=== PATIENT | female | born 1970 | race Caucasian/White ===

== ENCOUNTER → 2017-03-19 | Outpatient (CLI) | payer BC ==
--- NOTE | 2017-03-21 08:07 | MM ---
Reason for exam: screening (asymptomatic). Last mammogram was performed 2 years and 2 months ago. History: Taking hormonal contraceptives for 13 years 9 months beginning at age 21. Physical Findings: A clinical breast exam by your physician is recommended on an annual basis and results should be correlated with mammographic findings. MG Screening Mammo w CAD Bilateral CC and MLO view(s) were taken. Prior study comparison: January 15, 2015, bilateral MG screening mammo w CAD. The breast tissue is heterogeneously dense. This may lower the sensitivity of mammography. No significant changes when compared with prior studies. ASSESSMENT: Negative, BI-RAD 1 RECOMMENDATION: Routine screening mammogram of both breasts in 1 year.
== END | disposition home or self-care (01) ==
LOC: RADMAMWWP 17:00
PROVIDERS: ATTEND Obstetrics & Gynecology
DX: Z12.31 Encounter for screening mammogram for malignant neoplasm of breast (principal)

== ENCOUNTER → 2022-02-08 | Outpatient (CLI) | payer BC ==
--- NOTE | 2022-02-09 09:12 | MM ---
Reason for exam: clinical finding. Last mammogram was performed 4 years and 11 months ago. History: Took hormonal contraceptives for 13 years 9 months beginning at age 21. Indicated problem(s): palpable abnormality in the left breast. Physical Findings: A clinical breast exam by your physician is recommended on an annual basis and results should be correlated with mammographic findings. MG Diagnostic Mammo w CAD NESS Bilateral CC and MLO view(s) were taken. ML view(s) were taken of the right breast. Prior study comparison: March 19, 2017, bilateral MG screening mammo w CAD. January 15, 2015, bilateral MG screening mammo w CAD. The breast tissue is heterogeneously dense. This may lower the sensitivity of mammography. Finding: There is a 8 mm equal density (isodense), circumscribed oval mass located 10 cm from the nipple in the outer quadrant, posterior position of the right breast on MLO. There is no discrete abnormality including area of concern: left bruised area. New finding since January 15, 2015 and March 19, 2017. ASSESSMENT: Incomplete: need additional imaging evaluation, BI-RAD 0 RECOMMENDATION: Ultrasound of both breasts.
--- NOTE | 2022-02-09 09:25 | USB ---
Reason for exam: additional evaluation requested from abnormal screening. History: Took hormonal contraceptives for 13 years 9 months beginning at age 21. Physical Findings: A clinical breast exam by your physician is recommended on an annual basis and results should be correlated with mammographic findings. US Breast Limited BILAT Right limited breast ultrasound including focal area of concern, retroareolar and axilla demonstrates a 13 x 7 x 12mm oval, cystic lesion at 10 o'clock and a 11 x 7 x 10mm oval, mixed lesion at 10 o'clock, cyst aspiration recommended. Left limited breast ultrasound including focal area of concern, retroareolar and axilla demonstrates asymmetric tissue at 12 o'clock palpable, possible contusion, follow up in 2-3 months. ASSESSMENT: Suspicious, BI-RAD 4 RECOMMENDATION: Aspiration of the right breast. Ultrasound of the left breast in 3 months. (10 o'clock right breast complex cyst) Manage on a clinical basis with regard to left breast. Called Dr. Thomas's office with mammographic findings and has scheduled an appointment for the patient for 04/06/22 at 8:[address] Figueredo. Aspiration scheduled for 02/15/22 at 12:00. PRELIMINARY REPORT CALLED AND FAXED TO DR. FIGUEREDO ON 02/09/22.
== END | disposition home or self-care (01) ==
LOC: RADMAMWWP 08:24
PROVIDERS: ATTEND Obstetrics & Gynecology
DX: N63.0 Unspecified lump in unspecified breast (principal)
CPT/HCPCS: 77066

== ENCOUNTER → 2022-02-15 | Day surgery (SDC) | payer BC ==
[2022-02-15 12:21] VITALS: RESP 12
[2022-02-15 13:33] VITALS: BP 138/92; PULSE 80; TEMP 98.6
--- NOTE | 2022-02-15 14:51 | USB ---
EXAMINATION TYPE: US biopsy breast VAD RT, MG diagnostic mammo RT wo CAD DATE OF EXAM: 02/15/2022 CLINICAL HISTORY: R92.8 abnormal mammogram. Abnormal ultrasound. TECHNIQUE: Ultrasound guided fine-needle aspiration and/or core biopsy of right breast with clip placement and follow-up two-view mammogram. COMPARISON: Prior mammogram and ultrasound February 08, 2022 FINDINGS: The procedure of ultrasound guided fine-needle aspiration and/or core biopsy was explained to the patient. Benefits, alternatives, and risks were discussed. An informed consent was then obtained. The patient was placed in supine positioning for imaging and for the procedure. Preprocedure ultrasound redemonstrates 9 mm hypoechoic oval lesion with internal echoes and slight increased through transmission without vascularity at 10 and 11:00 position zone C. The overlying skin was prepped and draped in usual sterile fashion. Lidocaine is used as anesthetic into the skin and subcutaneous tissue up to area of concern in the right breast. Under ultrasound guidance, 18-gauge needle was inserted into the lesion but there is minimal aspiration of bloody material. At this point biopsy is chosen to further evaluate. A vacuum Assisted biopsy gun device was used to obtain 3 core samples under ultrasound guidance. Following this, a biopsy clip was left in lesion. Lesion appears slightly smaller and more irregular after sampling. The patient tolerated the procedure well without any immediate complication. The patient was kept in the radiology department for short stay after the procedure and then discharged home in stable condition. Postprocedure mammogram confirmed successful deployment of biopsy clip in the posterior depth upper outer aspect. IMPRESSION: Successful, uncomplicated ultrasound guided core biopsy of area of concern in the right breast, full pathology results to follow. Low index of suspicion noted at time of procedure. Pathology Results: Benign RIGHT BREAST, 10:00, ULTRASOUND GUIDED CORE BIOPSY: Fibroadenoma and background fibrocystic changes. Recommendation Follow up mammogram of the right breast in 6 months. SHAWNA
== END ==
LOC: RADUSWWP 11:53
PROVIDERS: ATTEND Surgery
DX: D24.1 Benign neoplasm of right breast (principal)
CPT/HCPCS: 88305; 77065; 19083; A4648; J2001

== ENCOUNTER → 2022-05-19 | Outpatient (CLI) | payer BC ==
--- NOTE | 2022-05-19 08:59 | USB ---
Patient History: Menarche at age 14. First Full-Term at age 31. Late child-bearing (after 31). Hormonal Contraceptives, starting at age 21 for 13 years, 9 months. 02/15/2022, Benign Core Biopsy on the right side. Risk Values: Le 5 year model risk: 1.6%. NCI Lifetime model risk: 14.0%. Prior Study Comparison: 03/19/2017 Bilateral Screening Mammogram, [facility]. 02/08/2022 Bilateral Diagnostic Mammogram, [facility]. 02/15/2022 Right Diagnostic Mammogram, [facility]. Findings: This exam is compared to the ultrasound of 02/08/2022. Over the interval there has been a change in the area of reported trauma left breast 12:00 zone A position. This area now appears suspicious with posterior shadowing and irregular borders. Biopsy is recommended. Overall Assessment: Suspicious, BI-RAD 4 Management: Ultrasound Core Biopsy of the left breast. A clinical breast exam by your physician is recommended on an annual basis and results should be correlated with mammographic findings. Electronically signed and approved by: Rocky Low D.O. Radiologis
== END | disposition home or self-care (01) ==
LOC: RADUSWWP 07:31
PROVIDERS: ATTEND Surgery
DX: R92.8 Other abnormal and inconclusive findings on diagnostic imaging of breast (principal)

== ENCOUNTER → 2022-05-29 | Day surgery (SDC) | payer BC ==
--- NOTE | 2022-06-02 14:02 | USB ---
Reason for Exam: Post Procedure Mammogram. Last screening mammogram was performed 4 month(s) ago. Patient History: Menarche at age 14. First Full-Term at age 31. Late child-bearing (after 31). Hormonal Contraceptives, starting at age 21 for 13 years, 9 months. 02/15/2022, Benign Core Biopsy on the right side. Last menstrual period: 05/28/2022 Risk Values: Le 5 year model risk: 1.6%. NCI Lifetime model risk: 14.0%. Prior Study Comparison: 03/19/2017 Bilateral Screening Mammogram, [facility]. 02/08/2022 Bilateral Diagnostic Mammogram, [facility]. 02/15/2022 Right Diagnostic Mammogram, [facility]. Tissue Density: Left: The breast tissue is heterogeneously dense. This may lower the sensitivity of mammography. Pathology Description: Location: 12 o'clock. Marker Left Behind. Needle Type: Mammotome Cores: 4 Skin Nicks: 1 The procedure of ultrasound guided core biopsy was explained to the patient. Benefits, alternatives, and risks were discussed. An informed consent was then obtained. The patient was placed in supine positioning for imaging and for the procedure. Preprocedure ultrasound redemonstrates vague irregular hypoechoic mass at 12:00 position with shadowing without significant vascularity difficult to accurately measure in size. The overlying skin was prepped and draped in usual sterile fashion. Lidocaine with epinephrine was used as anesthetic into the skin and subcutaneous tissue up to area of concern in the left breast. Under ultrasound guidance, a 12-gauge vacuum assisted biopsy gun device was used to obtain 4 core samples. Following this, a biopsy clip was left in lesion. The patient tolerated the procedure well without any immediate complication. The patient was kept in the radiology department for short stay after the procedure and then discharged home in stable condition. Post procedure mammogram shows successful deployment of clip corresponding to area of distortion and palpable abnormality on most recent mammogram Impression: Successful, uncomplicated ultrasound guided core biopsy of area of concern in the left breast, full pathology results to follow. Intermediate to high index of suspicion noted at time of procedure. Pathology Results: Result: Malignant, Invasive lobular carcinoma. LEFT BREAST, 12:00, ULTRASOUND GUIDED CORE BIOPSY: Invasive lobular carcinoma. See Surgical Pathology Cancer Case Summary and Comment. Overall Assessment: Malignant Assessment: MG diagnostic mammo LT wo CAD. - Left: Known biopsy proven malignancy, BI-RAD 6. Management: Surgical Consultation of the left breast. Electronically signed and approved by: Ronald Tamayo M.D.
== END ==
LOC: RADUSWWP 12:38
PROVIDERS: ATTEND Surgery
DX: C50.912 Malignant neoplasm of unspecified site of left female breast (principal); Z17.0 Estrogen receptor positive status [ER+]
CPT/HCPCS: 88305; 88342; 88341; 77065; 19083; A4648

== ENCOUNTER → 2022-06-13 | Outpatient (CLI) | payer BC ==
--- NOTE | 2022-06-23 06:31 | BMR ---
EXAMINATION TYPE: MR breast BILAT wo/w con DATE OF EXAM: 06/13/2022 COMPARISON: 3-D bilateral breast mammogram February 08, 2022 BI-RADS 0. Limited bilateral breast ultraso und February 08, 2022 BI-RADS 4. Complete left breast ultrasound May 19, 2022 BI-RADS 4. HISTORY: Mass 2 o'clock left breast, biopsy done. Invasive lobular carcinoma. Benign right breast bio psy February 15, 2022 fibroadenoma. TECHNIQUE: A series of fat and water weighted images in the long and short axis views of both breasts are obtained in conjunction with dynamic contrast MRI with subtraction technique. The patient was i njected with 7 mL intravenous Gadavist gadolinium contrast. Three-dimensional and additional postpr ocessing imaging is created on independent workstation and reviewed during official interpretation of this study. FINDINGS: Heterogeneously dense fibroglandular tissue is redemonstrated bilaterally. The T2 and STIR weighted images show multiple cysts of varying size and shape scattered throughout bilateral breasts, for reference is roughly 1.1 cm benign-appearing thin-walled cyst near 12:00 position right breast a xial image 40. No concerning focal fluid collections. No suspicious axillary adenopathy is identified bilaterally. Dynamic postcontrast imaging shows severe background enhancement including areas of tin y nodular enhancement bilaterally which is noted to lower MRI sensitivity. Delayed dynamic imaging sh ows no suspicious internal mammary adenopathy. Regarding the right breast: At the 9 o'clock position, 8.7 cm from the nipple, there is an oval mass with circumscribed margins measuring 1.2 x 1.0 x 1.3 cm. The mass contains susceptibility artifact centrally. Internal enhancement is heterogeneous. Kinetic assessment demonstrates fast initial enhancement followed by washout in the delayed portions of the curve. This is felt to correspond to the level of the biopsy proven fibroadenoma February 15, 2022. No other definitive suspicious masses or suspicious areas of enhancement are identified. Evaluation is limited by marked background parenchymal enhancement. Regarding the left breast: At the 12 o'clock position, 3.6 cm from the nipple, there is regional non mass enhancement measuring 5.4 x 2.6 x 3.7 cm. Internal enhancement is heterogeneous. Kinetic asses sment demonstrates some areas of fast initial enhancement followed by washout in the delayed portions of the curve. The non mass enhancement extends from the upper outer quadrant into the medial aspect of the left breast. There is associated architectural distortion appreciated best on mammogram. This corresponds to site of recent biopsy-proven neoplasm. In the inferior breast, no other masses or suspicious areas of enhancement are identified. Marked background parenchymal enhancement limits evaluation. IMPRESSION: Known malignancy identified at the 12 o'clock position of the left breast as described in detail in t he body of the report, maximum extent of 5.4 cm. No evidence of malignancy in the right breast, biopsy proven benign mass at the 9 o'clock position co rresponds to MRI abnormality. No lymphadenopathy. Innumerable bilateral scattered simple cysts, benign. Recommendations: Appropriate action be taken of the known left breast malignancy. BI-RADS category 2, benign right breast. BI-RADS category 6, known biopsy proven malignancy left breast. Case reviewed in consultation with [facility] radiology.
== END | disposition home or self-care (01) ==
LOC: RADMRIMAIN 12:21
PROVIDERS: ATTEND Surgery
DX: C50.912 Malignant neoplasm of unspecified site of left female breast (principal)
CPT/HCPCS: 77049; A9585

== ENCOUNTER → 2022-09-26 | Outpatient (CLI) | payer BC ==
--- NOTE | 2022-09-26 19:15 | CT ---
EXAMINATION TYPE: CT abdomen pelvis w con CT DLP: 999 mGycm, Automated exposure control for dose reduction was used. DATE OF EXAM: 09/26/2022 4:37 PM COMPARISON: none CLINICAL INDICATION:Female, 52 years old with history of C50.812 malignant neoplasm left breast; gene tic testing. hx of breast cancer TECHNIQUE: Axial CT of the abdomen and pelvis. Sagittal and coronal reformats were created on a [employer] workstation. Contrast used:100ml mL of Isovue 300 with IV Contrast, Oral contrast used: with Oral Contrast FINDINGS: LOWER CHEST: Unremarkable ABDOMEN LIVER: Unremarkable GALLBLADDER AND BILE DUCTS: The gallbladder is surgically absent. PANCREAS: Unremarkable. SPLEEN: Unremarkable. ADRENAL GLANDS: Unremarkable. KIDNEYS AND URETERS: No evidence of hydronephrosis or renal calculus. The ureters are unremarkable. PELVIS BLADDER: Unremarkable REPRODUCTIVE: Multiple hypoechoic attenuating lesions are seen throughout the lower uterus favored to represent nabothian cysts. ABDOMEN & PELVIS STOMACH AND BOWEL: No evidence of bowel obstruction. PERITONEUM: No evidence of pneumoperitoneum or free fluid. VASCULATURE: No evidence of aortic aneurysm. MUSCULOSKELETAL: No acute osseous abnormalities, no suspicious osseous lesions. LYMPH NODES: No gross evidence for lymphadenopathy. SOFT TISSUE/ABDOMINAL WALL: Fat-containing umbilical hernia. IMPRESSION: No evidence for metastatic disease within the abdomen or pelvis.
== END | disposition home or self-care (01) ==
LOC: RADCTMAIN 13:06
PROVIDERS: ATTEND Internal Medicine Hematology & Oncology
DX: C50.812 Malignant neoplasm of overlapping sites of left female breast (principal)
CPT/HCPCS: 74177; Q9967

== ENCOUNTER → 2022-10-17 | Outpatient (CLI) | payer BC ==
[2022-10-17 18:36] LABS: Basophils # (A) 0.06 X 10*3/uL (0.00-0.10); Basophils % (A) 0.8 %; Eosinophils # (A) 0.16 X 10*3/uL (0.04-0.35); Eosinophils % (A) 2.1 %; HCT 42.1 % (37.2-46.3); HGB 13.2 g/dL (12.0-15.0); Immature Grans, Automated 0.3 %; Lymphocytes # (A) 2.05 X 10*3/uL (0.90-5.00); Lymphocytes % (A) 27.3 %; MCH 28.3 pg (27.0-32.0); MCHC 31.4 g/dL (32.0-37.0); MCV 90.1 fL (80.0-97.0); Mean Platelet Volume 9.9 fL (9.5-12.2); Monocytes # (A) 0.57 X 10*3/uL (0.20-1.00); Monocytes % (A) 7.6 %; NRBC Per 100 WBC 0 /100 WBCS (0.0-0.0); Neutrophils # (A) 4.66 X 10*3/uL (1.80-7.70); Neutrophils % (A) 61.9 %; Platelet Count 532 X 10*3/uL (140-440); RBC 4.67 X 10*6/uL (4.10-5.20); RDW 12.8 % (11.5-14.5); WBC 7.52 X 10*3/uL (4.50-10.00)
== END | disposition home or self-care (01) ==
LOC: LABPAT 11:52
PROVIDERS: ATTEND Obstetrics & Gynecology
DX: Z01.812 Encounter for preprocedural laboratory examination (principal)
CPT/HCPCS: 36415; 85025

== ENCOUNTER → 2022-10-17 | Outpatient (CLI) | payer BC ==
--- NOTE | 2022-10-17 18:16 | BD ---
EXAMINATION TYPE: Axial Bone Density DATE OF EXAM: 10/17/2022 COMPARISON: BASELINE CLINICAL HISTORY: 52 years old Female. ICD-10 CODE: Z79.890 POST MENOPAUSAL SYMPTOMS Height: 63.5 Weight: 146 FRAX RISK QUESTIONS: Family History (Parent hip fracture): NO History of Fracture in Adulthood: NO Secondary Osteoporosis: NO RISK FACTORS HISTORY OF: Family History of Osteoporosis: NO Active: YES Diet low in dairy products/other sources of calcium: NO Postmenopausal woman: NO If Premenopausal, do you have irregular periods: NO Lost more than 2 inches in height since high school: NO MEDICATIONS: Additional Medications: NO Additional History: YES INVASIVE LOBULAR CA BREAST 06/09 EXAM MEASUREMENTS: Bone mineral densitometry was performed using the [employer] System. Bone mineral density as measured about the Lumbar spine is: ----- L1-L4(G/cm2): 1.123 T Score Values are as follows: ----- L1: 0.4 ----- L2: -0.7 ----- L3: -0.8 ----- L4: -0.8 ----- L1-L4: -0.5 Bone mineral density BASELINE Bone mineral density about the R hip (g/cm2): 0.810 Bone mineral density about the L hip (g/cm2): 0.792 T Score values are as follows: -----R Neck: -2.7 -----L Neck: -2.7 -----R Total: -1.6 -----L Total: -1.7 Bone mineral density BASELINE FRAX%s: The graph provided illustrates a 5.9% chance for a major osteoporotic fx and a 2.4% chance fo r the hips probability for fx in 10 years time. IMPRESSION: Osteoporosis (T Score less than -2.5). There is increased fracture risk and therapy is usually indicated based on age. Re-Screen 1-2 years. NOTE: T-SCORE=SD OF THE YOUNG ADULT MEAN.
== END | disposition home or self-care (01) ==
LOC: RADBDWWP 11:19
PROVIDERS: ATTEND Internal Medicine Hematology & Oncology
DX: M81.0 Age-related osteoporosis without current pathological fracture (principal); Z79.890 Hormone replacement therapy
CPT/HCPCS: 77080

== ENCOUNTER → 2022-10-20 | Outpatient (CLI) | payer BC | END | disposition home or self-care (01) | LOC: LABPAT 13:23 | PROVIDERS: ATTEND Obstetrics & Gynecology | DX: Z01.812 Encounter for preprocedural laboratory examination (principal) | CPT/HCPCS: 93005 ==

== ENCOUNTER 2022-10-26 07:31 | Day surgery (SDC) | payer BC ==
--- NOTE | 2022-10-25 18:07 | P.HPOB ---
History of Present Illness H&P Date: 10/25/22 Chief Complaint: Breast cancer 52-year-old presents for laparoscopic bilateral salpingo-oophorectomy using da Jose Luis. She has ER positive OH positive carcinoma of breast. Her oncologist has sent me correspond with the requests bilateral ovary removal. Review of Systems All systems: negative Constitutional: Denies chills, Denies fever Eyes: denies blurred vision, denies pain Ears, nose, mouth and throat: Denies headache, Denies sore throat Cardiovascular: Denies chest pain, Denies shortness of breath Respiratory: Denies cough Gastrointestinal: Denies abdominal pain, Denies diarrhea, Denies nausea, Denies vomiting Genitourinary: Denies dysuria, Denies hematuria Musculoskeletal: Denies myalgias Integumentary: Denies pruritus, Denies rash Neurological: Denies numbness, Denies weakness Psychiatric: Denies anxiety, Denies depression Endocrine: Denies fatigue, Denies weight change Past Medical History Past Medical History: Asthma, Cancer Additional Past Medical History / Comment(s): ASTHMA A CHILD, migraines, left breast cancer, has "white coat syndrome", [facility] to [facility] mastectomy for post-op staph infection, had EKG in there [facility], showed tachycardia- they felt was due to her anxiety History of Any Multi-Drug Resistant Organisms: None Reported Past Surgical History: Breast Surgery, Section, Cholecystectomy Additional Past Surgical History / Comment(s): X 2, left breast biopsy, modesto mastectomy w/reconstruction in June Past Anesthesia/Blood Transfusion Reactions: Postoperative Nausea & Vomiting (PONV) Smoking Status: Never smoker - Past Family History Mother Family Medical History: No Reported History Father Family Medical History: Hyperlipidemia, Hypertension Additional Family Medical History / Comment(s): HEART PROBLEMS Medications and Allergies Home Medications Medication Instructions Recorded Confirmed Type No Known Home Medications 10/24/22 10/24/22 History Allergies Allergy/AdvReac Type Severity Reaction Status Date / Time No Known Allergies Allergy Verified 10/24/22 10:12 Exam Osteopathic Statement: *. No significant issues noted on an osteopathic structural exam other than those noted in the History and Physical/Consult. Heart: Regular rate and rhythm Lungs: Clear to auscultation bilaterally Abdomen: Soft, nontender Extremities: Negative Homans sign Assessment and Plan (1) Carcinoma of breast, estrogen and progesterone receptor positive Status: Acute Code(s): C50.919 - MALIGNANT NEOPLASM OF UNSP SITE OF UNSPECIFIED FEMALE BREAST; Z17.0 - ESTROGEN RECEPTOR POSITIVE STATUS [ER+] SNOMED Code(s): 361827336 Plan: 1. Laparoscopic bilateral salpingo-oophorectomy using da Jose Luis
[~2022-10-26 07:31] MED LIST: Pre Op ABX Message 1 EACH MISC MISCELLANE ONE
[2022-10-26] MEDS ORDERED: DEXAMETHASONE SOD PHOSPHATE 4 MG/ML 1 ML VIAL IV ONE (07:37)
[2022-10-26] MEDS ORDERED: ONDANSETRON 4 MG/2 ML VIAL IVP ONE (07:37)
[2022-10-26] MEDS ORDERED: HYDROmorphone 0.5 MG/0.5 ML SYRINGE IVP PRN (07:37)
[2022-10-26] MEDS ORDERED: LACTATED RINGERS 1,000 ML IV SCH (07:37)
[2022-10-26] MEDS ORDERED: LIDOCAINE 1% (10MG/ML) FOR IV START INTRADERMA ONE (08:13)
[2022-10-26] MEDS: MIDAZOLAM 2 MG/2 ML VIAL IVP ONE ×2 (08:19→08:41)
[2022-10-26] MEDS ORDERED: fentaNYL (PF) 50 MCG/ML 2 ML AMP IVP ONE (08:41)
--- NOTE | 2022-10-26 08:54 | P.ANPRN ---
Procedure Note - Anesthesia - Nerve Block Performed Bilateral Erector Spinae Single Time Out Performed: Yes ([id number]) Date of Procedure: 10/26/22 Procedure Start Time: 08:41 Procedure Stop Time: 08:47 Location of Patient: PreOp Indication: Acute Post-Operative Pain, Requested by Surgeon ([email or web address]) Specifically requested for management of pain by DrAnalia: Maria Dolores Lovell Sedation Type: Sedate with meaningful contact maintained Preparation: Sterile Prep Position: Sitting Catheter: None Needle Types: Pajunk Needle Gauge: 21 Ultrasound used to visualize needle placement: Yes Ultrasound used to observe medication spread: Yes Injectate: 0.5% Ropivacaine (see comment for volume) (15cc + 10cc nacl pf each side) Blood Aspirated: No Pain Paresthesia on Injection Noted: No Resistance on Injection: Normal Image Stored and Saved: Yes Events: Uneventful and Well Tolerated
[2022-10-26] MEDS ORDERED: SODIUM CHLORIDE 0.9% 100 ML BAG ONE (10:12)
[2022-10-26] MEDS ORDERED: PHENYLEPHRINE-0.9% NACL SYG 1,000 MCG/10 ML SYRINGE ONE (10:12)
[2022-10-26] MEDS ORDERED: PROPOFOL 10 MG/ML 20 ML VIAL IV ONE (10:12)
[2022-10-26] MEDS ORDERED: ceFAZolin 1,000 MG VIAL ONE (10:12)
[2022-10-26] MEDS ORDERED: GLYCOPYRROLATE 0.2 MG/ML 2 ML VIAL ONE (10:12)
[2022-10-26] MEDS ORDERED: HYDROmorphone (PF) 1 MG/ML ONE (10:12)
[2022-10-26] MEDS ORDERED: NEOSTIGMINE 1 MG/ML 10 ML VIAL ONE (10:12)
[2022-10-26] MEDS ORDERED: LIDOCAINE 2% INJ 20 MG/ML (2 ML VIAL) ONE (10:12)
[2022-10-26] MEDS ORDERED: ROPIVACAINE 5 MG/ML 30 ML VIAL ONE (10:12)
[2022-10-26] MEDS ORDERED: fentaNYL (PF) 50 MCG/ML 2 ML AMP ONE (10:12)
[2022-10-26] MEDS ORDERED: ROCURONIUM 10 MG/ML (5 ML VIAL) IV ONE (10:12)
[2022-10-26] MEDS ORDERED: SUCCINYLCHOLINE CHLORIDE 200 MG/10 ML VIAL IV ONE (10:12)
[2022-10-26] MEDS ORDERED: SODIUM CHLORIDE 0.9% (PF) 10 ML VIAL ONE (10:12)
[2022-10-26] MEDS ORDERED: LIDOCAINE 4% LTA KIT (4 ML) TOPICAL ONE (10:12)
[2022-10-26] MEDS ORDERED: MIDAZOLAM 2 MG/2 ML VIAL ONE (10:12)
[2022-10-26] MEDS ORDERED: BUPIVACAINE (PF) 0.5% 30 ML VIAL SQ ONE ×2 (11:05)
--- NOTE | 2022-10-26 11:24 | P.OP ---
Date of Procedure: 10/26/22 Preoperative Diagnosis: 1. ER/HI positive breast cancer Postoperative Diagnosis: 1. ER/HI positive breast cancer Procedure(s) Performed: Laparoscopic bilateral salpingo-oophorectomy using da Jose Luis and lysis of adhesions Anesthesia: SE Surgeon: Maria Dolores Lovell Estimated Blood Loss (ml): 2 IV fluids (ml): 400 Urine output (ml): 200 Pathology: other (Bilateral tubes and ovaries) Condition: stable Disposition: PACU Operative Findings: Omental adhesions to the anterior abdominal wall, small amount of adhesions the anterior uterus. Normal-appearing tubes and ovaries. Description of Procedure: Patient taken the operating room where general anesthesia was obtained without difficulty. She is prepped and draped in normal sterile fashion dorsal lithotomy position, legs placed in the Enrique stirrups. The latter was drained of all urine. Weighted speculum placed in the vagina and the anterior lip the cervix was grasped with single-tooth tenaculum. The uterus sounded to 9 cm. the kroner manipulator was then placed. Attention was then turned to the abdomen and gloves were changed. A 5 mm supraumbilical incision was made the scalpel and a 5 mm optical trocar was placed under direct visualization. 10 cm to the right of this and 2 cm down a 5 mm incision was made and 8 mm da Jose Luis port was placed under direct visualization. Same measurements on the opposite side of the patient's abdomen, the 5 mm incision was made and 8 mm da Jose Luis port was placed under direct visualization. In the left upper quadrant a 10 mm incision was made and a 10 mm optical trocar was placed under direct visu alization. The 5 mm optical trocar was then replaced with the 8 mm da Jose Luis camera port. The robot was docked on patient's left side. The camera was introduced and then the monopolar curved scissor and [place] bipolar placed under direct visualization. I broke scrub and went to the physician console. Survey of the abdomen and pelvis revealed omental adhesions from the anterior abdominal wall in the midline from the umbilicus to the symphysis pubis. These were filmy adhesions easily taken down using the monopolar curved scissors. The left fallopian tube was elevated with the grasper. The infundibulopelvic ligament was cauterized with the [place] bipolar and cut with the monopolar curved scissors. The uterosacral ligament the mesosalpinx and the fallopian tube were also cauterized with the [place] bipolar and cut with the monopolar curved scissors to remove the fallopian tube and ovary. The right infundibulopelvic ligament was then cauterized with the [place] bipolar and cut with the monopolar curved scissors as well as the fallopian tube and the utero ovarian ligament. Once both ovaries were free there placed into a #10 bag and removed from the technical support assistant port. Hemostasis was assured. All instruments were removed from the vagina and the abdomen. The abdominal incisions were closed with 4-0 Vicryl in a subcuticular fashion. Patient tolerated the procedure well, sponge and instrument counts correct 2 and she was taken to recovery room in stable condition condition
[2022-10-26 11:29] VITALS: RESP 18; TEMP 97.7
[2022-10-26 12:52] VITALS: BP 120/75; PULSE 67
== END 2022-10-26 13:36 | disposition home or self-care (01) ==
LOC: OR 07:31
PROVIDERS: ATTEND Obstetrics & Gynecology
DX: C50.919 Malignant neoplasm of unspecified site of unspecified female breast (principal); Z17.0 Estrogen receptor positive status [ER+]; G89.29 Other chronic pain; J45.909 Unspecified asthma, uncomplicated; G43.909 Migraine, unspecified, not intractable, without status migrainosus; F41.9 Anxiety disorder, unspecified; K91.0 Vomiting following gastrointestinal surgery; Z90.49 Acquired absence of other specified parts of digestive tract; Z98.891 History of uterine scar from previous surgery; Z98.82 Breast implant status; Z83.49 Family history of other endocrine, nutritional and metabolic diseases; Z82.49 Family history of ischemic heart disease and other diseases of the circulatory system
CPT/HCPCS: 64461; 58661; J2250; J0330; J1100; J2710; J2405; J0690; J3010; J1170; J2795; J2370; J2704; J2001; 88305

== ENCOUNTER 2022-12-06 09:36 | Day surgery (SDC) | payer BC ==
[2022-12-01 14:14] VITALS: BMI 25.9
[~2022-12-06 09:36] MED LIST changes: +DEXAMETHASONE SOD PHOSPHATE 4 MG/ML 1 ML VIAL IV ONE; +HYDROmorphone 0.5 MG/0.5 ML SYRINGE IVP PRN; +LACTATED RINGERS 1,000 ML IV SCH; +LIDOCAINE 1% (10MG/ML) FOR IV START INTRADERMA PRN; +ONDANSETRON 4 MG/2 ML VIAL IVP ONE; +SCOPOLAMINE 1 MG/72 HR PATCH TRANSDERM ONE
[2022-12-06 10:13] VITALS: RESP 16
[2022-12-06] MEDS ORDERED: LIDOCAINE 1% (10MG/ML) FOR IV START INTRADERMA ONE (10:14)
[2022-12-06] MEDS ORDERED: fentaNYL (PF) 50 MCG/ML 2 ML AMP ONE (10:59)
[2022-12-06] MEDS ORDERED: SUCCINYLCHOLINE CHLORIDE 200 MG/10 ML VIAL IV ONE (10:59)
[2022-12-06] MEDS ORDERED: LIDOCAINE 2% INJ 20 MG/ML (2 ML VIAL) ONE (10:59)
[2022-12-06] MEDS ORDERED: PHENYLEPHRINE-0.9% NACL SYG 1,000 MCG/10 ML SYRINGE ONE (10:59)
[2022-12-06] MEDS ORDERED: PROPOFOL 10 MG/ML 20 ML VIAL IV ONE (10:59)
[2022-12-06] MEDS ORDERED: MIDAZOLAM 2 MG/2 ML VIAL ONE (10:59)
[2022-12-06] MEDS ORDERED: KETOROLAC 15 MG/ML 1 ML VIAL ONE (10:59)
[2022-12-06] MEDS ORDERED: HYDROmorphone (PF) 1 MG/ML ONE (10:59)
[2022-12-06] MEDS ORDERED: SODIUM CHLORIDE 0.9% 50 ML with ceFAZolin 2 MG IV ONE ×2 (11:04)
[2022-12-06] MEDS ORDERED: SODIUM CHLORIDE 0.9% 50 ML with ceFAZolin 2 GM IV ONE ×2 (11:04)
[2022-12-06 13:25] VITALS: TEMP 97
[2022-12-06 14:39] VITALS: BP 125/68; PULSE 81
--- NOTE | 2022-12-06 19:38 | OP ---
OPERATIVE REPORT PREOPERATIVE DIAGNOSES: 1. Acquired absence, right and left breasts. 2. Personal history of breast cancer. 3. Personal history of bilateral mastectomy. 4. Acquired deformity, right and left reconstructed breasts. 5. Acquired loss, right and left breast inframammary folds. POSTOPERATIVE DIAGNOSES: 1. Acquired loss, right and left breasts. 2. Personal history of breast cancer. 3. Personal history of bilateral mastectomy. 4. Acquired deformity, right and left reconstructed breasts. 5. Acquired loss, right and left breast inframammary folds. OPERATIVE PROCEDURES: 1. Replace right breast tissue peer counselor with silicone breast implant for right breast reconstruction. 2. Revision right reconstructed breast. 3. Replace left breast tissue peer counselor with silicone breast implant for left breast reconstruction. 4. Revision left reconstructed breast. 5. Reconstruction, right and left inframammary folds via local advancement flap, 80 cm2. 6. Implantation of reconstructive graft for left breast reconstruction. OPERATIVE INDICATIONS: The patient is a 52-year-old female, who has undergone bilateral mastectomy procedures for treatment of breast cancer with immediate reconstruction via tissue peer counselor technique. The patient's surgery was complicated by drain site infection, which required readmission to hospital, IV antibiotics, and did resolve. She then had further trouble with wound healing at the mastectomy sites that required additional surgery with placement of substitute graft, and she ultimately healed well. She subsequently completed outpatient expansion and is returning to surgery today for second-stage breast reconstruction, replacement of her peer counselor with silicone breast implant, revision of reconstructed breasts due to contour irregularities and shape differences as well as reconstruction of the inframammary folds that have been lost due to the mastectomy expansion and healing processes. She understands the potential risks and complications of the surgery and has requested to perform the surgery. OPERATIVE PROCEDURE SUMMARY: The patient was seen in the preoperative area. Markings were made. Procedure was reviewed. All questions were answered. She was transported to the operating room, where she was placed in supine position. Following induction of general endotracheal anesthesia, the patient was prepped and draped in usual fashion. The right and left markings were made for an incision in a transverse lateral aspect on each side. Beginning on the right side, the incision was made with 10-blade scalpel dividing skin in full-thickness fashion followed by use of cauterization to divide subcutaneous tissue. Then, skin and subcutaneous tissue flaps were elevated off the underlying muscle flap graft layers completely to allow optimal re-draping and release of contour irregularities and deformities from the prior surgeries and healing. With that completed, a lower transverse incision was made through the muscle flap tissue with cautery exposing the peer counselor. The peer counselor was removed intact. The expansion cavity appeared normal with some serous fluid, but no granulation tissue, no exudates. A complete capsulotomy incision was now made using cautery circumferentially followed by multiple cruciate incisions through the capsular structures to release tightness to help optimize shape. Through the inferior capsulotomy incision, dissection was performed to elevate the skin and subcutaneous tissue flap for reconstruction of the right inframammary fold. The fold measured 2 x 20 cm2. The flap was developed with cautery and then advanced in cephalad fashion securing the flap to the chest wall, rib periosteal tissues using interrupted 2-0 Vicryl sutures. A discrete inframammary fold was created by this method. The cavity was packed open with multiple laparotomy sponges. Attention was turned towards the left side. The incision was made following the diagram placed with 10-blade scalpel dividing skin in full-thickness fashion followed by use of cauterization to divide subcutaneous tissue until reaching the muscle flap graft, where careful dissection was performed this layer from skin and subcutaneous tissue. Extensive dissection was required releasing this layer completely to allow for correction of deformities and contour irregularities that occurred from the other surgeries and healing. Once this was completed, a lower transverse incision was made through the muscle flap graft layer with cautery. The incision was transverse oriented, but not as low on the right side. This was due to a thin attenuation to the tissue on the left side, probably related to the patient's past drain site infection. The peer counselor was removed intact. The cavity appeared normal, some serous fluid, no granulation tissue, no exudates. Again, a complete capsulotomy incision was made where the capsule joined the chest followed by multiple cruciate incisions through the remaining structure of the capsule in all locations. Through the inferior capsulotomy incision, a dissection was performed to create an inframammary fold flap. The flap measured 2 x 20 cm2 as it did on the right. It was elevated with cautery and then advanced in cephalad fashion securing to rib periosteal tissues using several interrupted 2-0 Vicryl sutures creating a discrete inframammary fold in symmetrical location to the right side. With that completed, irrigation was performed on each side. Hemostasis was optimized in both surgical sites with cautery. Excellent hemostasis was present. Temporary breast implant sizer was opened on the field. Several sizers were tried. Ultimately, 520 mL sizer appeared optimal for both breasts with the patient in seated up position. She was returned to supine position. Temporary breast implant sizer was removed. Cavities were irrigated. It was clear on the left side due to tissue attenuation, she would require additional support for the reconstruction. SurgiMend reconstructive graft measuring 10 x 15 cm2, thin and meshed, was opened on the field and revitalized with room-temperature saline. Once the graft was ready, it was placed in the reconstructive field and secured to the lateral inferior muscle cuff using interrupted 3-0 Vicryl sutures. Gloves were changed, and breast implants were opened on the field. Both breast implants measured 520 mL form the [facility] [employer] Soft[employer] breast implant line, reference number [id number]. The left- sided serial number was [id number], and the right-sided serial number was [id number]. The devices were not touched. They were irrigated with saline and passed into the reconstructive cavities using the [place] funnel no-touch technique. On the left side, the SurgiMend was then advanced over the implant, but deep to the muscle flap and spanning the gap where the flap could not be reapproximated as well as buttressing the tissue that was attenuated as mentioned earlier. The graft was then sutured to the muscle tissue using interrupted 3-0 Vicryl suture providing complete coverage. On the right side, the muscle was reapproximated using interrupted 3-0 Vicryl suture. The incisions were now closed approximating the deep dermis using inverted interrupted 4-0 Monocryl and completing superficial, dermal, and epidermal closure with running 5-0 Prolene. Surgical contreras were cleansed with saline and dried, and postoperative bandages were placed using 4 x 4's secured with 3M Medipore tape, positioned with size 3 white mammary support with additional gauze padding to the lateral aspects. The patient was then awakened from anesthetic, extubated, and transferred to recovery room in good condition with stable vital signs. The estimated blood loss was 25 mL. There were no complications. MMODL / IJN: [id number] /
== END 2022-12-06 14:52 | disposition home or self-care (01) ==
LOC: OR 09:36
PROVIDERS: ATTEND Plastic Surgery
DX: N65.0 Deformity of reconstructed breast (principal); Z90.13 Acquired absence of bilateral breasts and nipples; Z85.3 Personal history of malignant neoplasm of breast; Z98.890 Other specified postprocedural states; Z91.048 Other nonmedicinal substance allergy status; J45.909 Unspecified asthma, uncomplicated; Z79.811 Long term (current) use of aromatase inhibitors
CPT/HCPCS: 19380; J1100; J2405; J0690

== ENCOUNTER 2024-03-04 11:45 | Day surgery (SDC) | payer BC ==
[~2024-03-04 11:45] MED LIST changes: -DEXAMETHASONE SOD PHOSPHATE 4 MG/ML 1 ML VIAL IV ONE; -HYDROmorphone 0.5 MG/0.5 ML SYRINGE IVP PRN; -LACTATED RINGERS 1,000 ML IV SCH; -ONDANSETRON 4 MG/2 ML VIAL IVP ONE; -Pre Op ABX Message 1 EACH MISC MISCELLANE ONE; -SCOPOLAMINE 1 MG/72 HR PATCH TRANSDERM ONE
[2024-03-04] MEDS: LACTATED RINGERS 1,000 ML IV SCH (12:35)
[2024-03-04] MEDS ORDERED: PROPOFOL 10 MG/ML 20 ML VIAL IV ONE (12:45)
[2024-03-04] MEDS ORDERED: LABETALOL 5 MG/ML VIAL MDV ONE (12:45)
--- NOTE | 2024-03-04 13:07 | P.GSHP ---
History of Present Illness H&P Date: 03/04/24 Chief Complaint: Colon cancer screening 54-year-old female here for colonoscopy. She has not had one before. Personal history of breast cancer. No bowel complaints. Past Medical History Past Medical History: Asthma, Cancer, Hypertension Additional Past Medical History / Comment(s): ASTHMA A CHILD, migraines, left breast cancer, no chemo or radiation on pills History of Any Multi-Drug Resistant Organisms: None Reported Past Surgical History: Breast Surgery, Section, Cholecystectomy Additional Past Surgical History / Comment(s): X 2, left breast biopsy, double mastectomy , ovaries removed. has uterus Past Anesthesia/Blood Transfusion Reactions: Family History of Problems w/ Anes thesia, Postoperative Nausea & Vomiting (PONV) Additional Past Anesthesia/Blood Transfusion Reaction / Comment(s): father slow to wake up. Smoking Status: Never smoker - Past Family History Mother Family Medical History: No Reported History Father Family Medical History: Coronary Artery Disease (CAD), Diabetes Mellitus, Hypertension Additional Family Medical History / Comment(s): HEART PROBLEMS Medications and Allergies Home Medications Medication Instructions Recorded Confirmed Type Calcium Carbonate/Vitamin D3 1,000 mg PO DAILY 12/01/22 02/29/24 History [Calcium 500 mg Chewable Tablet] Cholecalciferol [Vitamin D3 (25 50 mcg PO DAILY 12/01/22 02/29/24 History Mcg = 1000 Iu)] Letrozole 2.5 mg PO DAILY 12/01/22 02/29/24 History Metoprolol Succinate (ER) [Toprol 50 mg PO DAILY 02/29/24 02/29/24 History Xl] Allergies Allergy/AdvReac Type Severity Reaction Status Date / Time No Known Allergies Allergy Verified 03/04/24 12:24 Surgical - Exam Vital Signs Temp Pulse Resp BP Pulse Ox 97.8 F 133 H 16 161/85 100 03/04/24 12:35 03/04/24 12:35 03/04/24 12:35 03/04/24 12:35 03/04/24 12:35 Physical exam: General: Well-developed, well-nourished HEENT: Normocephalic, sclerae nonicteric Abdomen: Nontender, nondistended Extremities: No edema Neuro: Alert and oriented Assessment and Plan (1) Colon cancer screening Narrative/Plan: Will proceed with colonoscopy at this time. Current Visit: Yes Status: Acute Code(s): Z12.11 - ENCOUNTER FOR SCREENING FOR MALIGNANT NEOPLASM OF COLON SNOMED Code(s): 563379934
--- NOTE | 2024-03-04 13:07 | P.PCN ---
Date of Procedure: 03/04/24 Procedure(s) Performed: PREOPERATIVE DIAGNOSIS: Colon cancer screening POSTOPERATIVE DIAGNOSIS: Normal exam PROCEDURE: Colonoscopy ANESTHESIA: MAC SURGEON: Swapnil Figueredo M.D. SPECIMENS: None ENDOSCOPIC PROCEDURE: The patient was placed on the endoscopy table in the left decubitus position. The Olympus colonoscope was inserted into the anus and passed under direct visualization to the base of the cecum. The appendiceal orifice was visualized. From that point the scope was slowly withdrawn inspecti ng all surfaces carefully. There were no neoplastic inflammatory or polypoid lesions throughout the cecum, ascending, transverse, descending, sigmoid and rectum. There was no visible diverticulosis noted. Digital rectal examination was normal. The patient was taken to the recovery room in stable condition per anesthesia guidelines. RECOMMENDATIONS: Resume diet. Repeat colonoscopy 7 to 10 years
[2024-03-04 13:12] VITALS: RESP 16; TEMP 97.8
[2024-03-04 13:55] VITALS: BP 102/65; PULSE 81
== END 2024-03-04 13:50 | disposition home or self-care (01) ==
LOC: ORWHC2ENDO 11:45
PROVIDERS: ATTEND Surgery
DX: Z12.11 Encounter for screening for malignant neoplasm of colon (principal); I10 Essential (primary) hypertension; J45.909 Unspecified asthma, uncomplicated; G43.909 Migraine, unspecified, not intractable, without status migrainosus; Z85.3 Personal history of malignant neoplasm of breast; Z90.49 Acquired absence of other specified parts of digestive tract; Z79.899 Other long term (current) drug therapy; Z90.722 Acquired absence of ovaries, bilateral; Z90.12 Acquired absence of left breast and nipple
CPT/HCPCS: 45378; J2704; J1920

== ENCOUNTER → 2024-10-20 | Outpatient (CLI) | payer BC | END | disposition home or self-care (01) | LOC: RADBDWWP 09:12 | PROVIDERS: ATTEND Internal Medicine Hematology & Oncology | DX: Z53.9 Procedure and treatment not carried out, unspecified reason (principal) ==

== ENCOUNTER → 2025-05-12 | Outpatient (CLI) | payer BC ==
--- NOTE | 2025-05-12 13:56 | NM ---
EXAMINATION TYPE: NM bone scan whole body DATE OF EXAM: 05/12/2025 COMPARISON: NONE CLINICAL INDICATION: Female, 55 years old with history of C50.812 BR CANCER; TECHNIQUE: Delayed whole-body scanning was performed following the injection of 23.1 mCi Tc 99m MDP. Images acquired 3 hours post injection. FINDINGS: Some minimal degenerative tracer activity at the right knee and both shoulders. No suspicious distrib ution of activity throughout the osseous structures. Bladder activity and some urine contamination no gildardo. IMPRESSION: No scintigraphic evidence for osseous metastatic disease. [facility], Workstation: [email or web address], 05/12/2025 1:54 PM
== END | disposition home or self-care (01) ==
LOC: RADNMMAIN 09:30
PROVIDERS: ATTEND Internal Medicine Hematology & Oncology
DX: C50.812 Malignant neoplasm of overlapping sites of left female breast (principal)
CPT/HCPCS: 78306; A9503

== ENCOUNTER → 2025-05-14 | Outpatient (CLI) | payer BC ==
--- NOTE | 2025-05-14 11:18 | US ---
EXAMINATION TYPE: US liver DATE OF EXAM: 05/14/2025 COMPARISON: 01/13/2015 CLINICAL INDICATION: Female, 55 years old with history of C50.812 BR CANCER; Cholecystectomy TECHNIQUE: Grayscale and color Doppler imaging of the right upper quadrant. FINDINGS: EXAM MEASUREMENTS: Liver Length: 10.7 cm Gallbladder: Surgically absent CBD: 0.67 cm, color Doppler imaging was utilized to isolate the common bile duct for measurement. Right Kidney: 8.8 x 4.8 x 4.1 cm [employer] NOTES: Exam is limited due to gas. Pancreas: *Slightly limited due to gas. No gross abnormalities seen. Liver: No abnormalities seen Gallbladder: Surgically absent Evidence for sonographic Tracy's sign: No CBD: Borderline dilated. Right Kidney: Small in size. No hydronephrosis or masses seen IMPRESSION: Borderline dilated bile duct at 6.7 mm. This may be acceptable given postcholecystectomy status. Cyndee elate with alkaline phosphatase and bilirubin levels. [facility], , 05/14/2025 11:16 AM
== END | disposition home or self-care (01) ==
LOC: RADUSWWP 07:27
PROVIDERS: ATTEND Internal Medicine Hematology & Oncology
DX: C50.812 Malignant neoplasm of overlapping sites of left female breast (principal); Z85.3 Personal history of malignant neoplasm of breast; Z90.49 Acquired absence of other specified parts of digestive tract
CPT/HCPCS: 76705

== ENCOUNTER → 2025-06-03 | Outpatient (CLI) | payer BC ==
--- NOTE | 2025-06-04 08:55 | BD ---
EXAMINATION TYPE: Axial Bone Density DATE OF EXAM: 06/03/2025 CLINICAL HISTORY: 55 years old Female. ICD-10 CODE: M81.0 OTEOPENIA , Additional History: Height: 64 Weight: 160.3 FRAX RISK QUESTIONS: Alcohol (3 or more units per day): no Family History (Parent hip fracture): no Glucocorticoids (More than 3mos): utility person (Ex: prednisone, prednisolone, methylprednisolone, dexamethasone, and hydrocortisone). History of Fracture in Adulthood: no Secondary Osteoporosis: 1. Type 1 Diabetes: no 2. Hyperthyroidism: no 3. Menopause before 45: no 4. Malnutrition: no 5. Chronic liver disease: no Rheumatoid Arthritis: no Current Tobacco Use: no RISK FACTORS HISTORY OF: Hip Fracture (Right/Left): no Spine Fracture: no History of Wrist Fracture: no Surgery to Spine/Hip(right/left)/Wrist (right/left): no MEDICATIONS: Thyroid Medications: no Osteoporosis Medications: Reclast injection How Long: past 2 years Breast Ca. 2021 EXAM MEASUREMENTS: Bone mineral densitometry was performed using the [employer] System. Bone mineral density as measured about the Lumbar spine is: ----- L1-L4(G/cm2): 1.133 T Score Values are as follows: ----- L1: 0.4 ----- L2: -0.6 ----- L3: -0.8 ----- L4: -0.6 ----- L1-L4: -0.4 Z Score Values are as follows: ----- L1: 0.8 ----- L2: -0.1 ----- L3: -0.3 ----- L4: -0.1 ----- L1-L4: 0.1 Bone mineral density has: increased 0.9 % since study of: 10/17/2022 Bone mineral density about the R hip (g/cm2)0.786 Bone mineral density about the L hip (g/cm20.765 T Score values are as follows: -----R Neck: -2.5 -----L Neck: -2.3 -----R Total: -1.8 -----L Total: -1.9 Z Score values are as follows: -----R Neck: -1.6 -----L Neck: -1.5 -----R Total: -1.3 -----L Total: -1.5 Bone mineral density has: decreased -3.1 % since study of: 10/17/2022 FRAX%s: The graph provided illustrates a 8.8% chance for a major osteoporotic fx and a 1.6% chance fo r the hips probability for fx in 10 years time. IMPRESSION: Osteopenia (T Score between -2.5 and -1). There is slightly increased risk of fracture and the patient may be considered for treatment. Re-Screen 2-5 years. NOTE: T-SCORE=SD OF THE YOUNG ADULT MEAN. [facility], , 06/04/2025 8:52 AM
== END | disposition home or self-care (01) ==
LOC: RADBDWWP 15:55
PROVIDERS: ATTEND Internal Medicine Hematology & Oncology
DX: Z03.89 Encounter for observation for other suspected diseases and conditions ruled out (principal); M81.0 Age-related osteoporosis without current pathological fracture; M85.89 Other specified disorders of bone density and structure, multiple sites; C50.812 Malignant neoplasm of overlapping sites of left female breast; Z15.01 Genetic susceptibility to malignant neoplasm of breast; Z71.3 Dietary counseling and surveillance
CPT/HCPCS: 77080